=== PATIENT | male | born 1985 | race Asian ===

== ENCOUNTER 2021-04-12 04:33 | Emergency (ER) | payer OTHER ==
[~2021-04-12] VITALS: Ht 172.7 cm; Wt 81.6 kg
[2021-04-12 07:30] VITALS: BP 131/87
[2021-04-12] MEDS ORDERED: cefTRIAXone SOD 1,000 MG VL IM ONE (07:45)
[2021-04-12] MEDS ORDERED: DexAMETHasone SOD PHOS 10MG/1ML VIAL INJ IM ONE (07:45)
[2021-04-12] MEDS ORDERED: METH4PAK PO (07:58)
[2021-04-12] MEDS ORDERED: AZIT500T66 PO (07:58)
== END 2021-04-12 08:13 | disposition home or self-care (01) ==
LOC: ER 04:33
DX: J18.9 Pneumonia, unspecified organism (principal); F17.210 Nicotine dependence, cigarettes, uncomplicated; I10 Essential (primary) hypertension; Z20.822 Contact with and (suspected) exposure to COVID-19
CPT/HCPCS: 36415; 71045; 87426; 96372; 99284; J0696; J1100